=== PATIENT | female | born 1960 | race Two or more races ===

== ENCOUNTER → 2025-02-08 | Day surgery (SDC) | payer OTHER ==
[2025-02-01 11:36] VITALS: BP 142/78
[~2025-02-08] VITALS: Ht 170.2 cm; Wt 54.4 kg
[~2025-02-08] MED LIST: AVAPRO300 MG PO; BUPIVACAINE HCL 30 ML VIAL IJ ONE; BUPIVACAINE HCL/MPF 0.5% 30ML VIAL ONE; CEFTRIAXONE SODIUM 2,000 MG VIAL IV ONE; CEFTRIAXONE SODIUM 2,000 MG VIAL ONE; CELECOXIB200 MG PO; DIBUCAINE 30 GM TUBE ONE; DIBUCAINE 30 GM TUBE RECTAL ONE; HEMOSTATIC MATRIX 1 KIT KIT TOP ONE; INTESTINEX680 M1 PO; LIDOCAINE HCL 1%/EPINEPHRINE 20ML VIAL IJ ONE; METRONIDAZOLE/SODIUM CHLORIDE 500 MG/100 ML PIGGYBACK IV ONE; NEURONTIN300 MG PO; PERCOCET 5-3251 EACH PO; POVIDONE-IODINE 118 ML BOTT TOP ONE
== END | disposition home or self-care (01) ==
LOC: ADM 02-01 10:30 → CIR.AMB 06:00
PROVIDERS: ATTEND Surgery
DX: K64.3 Fourth degree hemorrhoids (principal); K64.2 Third degree hemorrhoids; K64.4 Residual hemorrhoidal skin tags; K62.5 Hemorrhage of anus and rectum